=== PATIENT | female | born 2005 | race Caucasian/White ===

== ENCOUNTER 2025-04-11 12:02 | Emergency (ER) | payer BC, SELFPAY ==
[2025-04-11 12:11] VITALS: BP 127/77; PULSE 69; RESP 18; TEMP 36.9; O2SAT 98; BMI 23.1
--- NOTE | 2025-04-11 12:25 | CRLHL7_ITS ---
For Patients: As a result of the Century Cures Act, medical imaging exams and procedure reports are released immediately into your electronic medical record. You may view this report before your referring provider. If you have questions, please contact your health care provider. INDICATION: Playing rugby and hit another player. Unable to move arm. TECHNIQUE: Right shoulder three views. COMPARISON: None. FINDINGS: Anterior inferior dislocation of the humeral head relative to the glenoid. No visualized fracture. No other osseous abnormality. Soft tissues as imaged are unremarkable. IMPRESSION: Right anterior inferior shoulder dislocation. Dictated by Ezra Cornejo MD @ 04/11/2025 1:10:51 PM (Electronically Signed)
--- NOTE | 2025-04-11 12:26 | ED.GENADULT ---
HPI - General Adult General Chief complaint: Shoulder Injury/Pain Stated complaint: Right shoulder injury Time Seen by Provider: 04/11/25 12:16 History of Present Illness HPI narrative: This 19-year-old female comes in with an injury to her right shoulder. She was playing rugby and somehow got bumped and now has pain in her right shoulder region. She has associated decreased range of motion. She does not report any head injury or other injury. Related Data Home Medications ?Medication ?Instructions ?Recorded ?Confirmed control pills 04/11/25 Allergies Allergy/AdvReac Type Severity Reaction Status Date / Time No Known Drug Allergies Allergy Verified 04/11/25 12:10 Review of Systems Status of ROS: Reports: 10 or more systems reviewed and unremarkable except as noted in History and below Narrative: Constitutional: No fevers, no weight gain or loss. Eyes: No discharge. No vision changes. HENT: No congestion, no sore throat, no ear pain. Cardiovascular: No chest pain, no palpitations. Respiratory: No shortness of breath, no wheezes, no cough. Gastrointestinal: No abdominal pain, no vomiting, no diarrhea. Genitourinary: No dysuria, no hematuria. Musculoskeletal: Right shoulder injury as described above. Skin: No rashes, no pruritis. Neurological: No dizziness, weakness, sensory change, speech change. Endo/Heme/Allergies: No bruising or bleeding. No polydipsia. Pysch: no suicidality, no anxiety, no insomnia. All other systems reviewed and are negative. Exam Narrative: Exam Narrative: Constitutional: Well-developed, well-nourished, no acute distress. HEENT: Normocephalic, atraumatic. Neck: Normal range of motion. Nontender. Supple. Heart: Regular. No murmurs. Normal rate. Intact distal pulses. Lungs: Clear to auscultation. No chest discomfort. No wheezes, rhonchi, or rales. Abdomen: Normal bowel sounds. Nontender. No rebound tenderness. Genitalia: Deferred. Back: No midline tenderness. Normal range of motion. Extremities: Diffuse pain in the right shoulder. Range of motion is significantly decreased because of pain. No point tenderness when palpating along the clavicle and humerus. Skin: Intact. No rash. Warm. No erythema or pallor. Neurologic: No altered sensation. No weakness. Alert and oriented. Psychiatric: No suicidality. No anxiety or depression. No insomnia. Nursing notes and vitals signs are reviewed. Const: Vital Signs, click to edit/add: Vital Signs - 24 hr 04/11/25 12:11 Temperature 98.5 F Pulse Rate [Right Pulse Oximeter] 69 Respiratory Rate 18 Blood Pressure [Ri ght Upper Arm] 127/77 Pulse Oximetry 98 Oxygen Delivery Me thod Room Air Course Vital Signs Vital signs: Initial Vital Signs Temperature 98.5 F 04/11/25 12:11 Temperature Source Temporal Artery Scan 04/11/25 12:11 Pulse Rate 69 04/11/25 12:11 Respiratory Rate 18 04/11/25 12:11 Blood Pressure 127/77 04/11/25 12:11 Blood Pressure Mean 93 04/11/25 12:11 Blood Pressure Position Sitting 04/11/25 12:11 Pulse Oximetry 98 04/11/25 12:11 Oxygen Delivery Method Room Air 04/11/25 12:11 Vital Signs Temperature 98.5 F 04/11/25 12:11 Pulse Rate 69 04/11/25 12:11 Respiratory Rate 18 04/11/25 12:11 Blood Pressure 127/77 04/11/25 12:11 Pulse Oximetry 98 04/11/25 12:11 Oxygen Delivery Method Room Air 04/11/25 12:11 Temperature 98.5 F 04/11/25 12:11 Pulse Rate 69 04/11/25 12:11 Respiratory Rate 18 04/11/25 12:11 Blood Pressure 127/77 04/11/25 12:11 Pulse Oximetry 98 04/11/25 12:11 Oxygen Delivery Method Room Air 04/11/25 12:11 Medical Decision Making MDM Narrative Medical decision making narrative: This 19-year-old female comes in with an injury to her right shoulder. She does have some anterior fullness on exam that is suspicious for dislocation. She did receive an injection into the right glenohumeral joint space with 5 mL of bupivacaine 0.25%. This brought some relief to her symptoms. I was able to manipulate her shoulder back into proper position without any further sedation or and anesthesia. She received a sling and instructions were given regarding resuming activity. She also received a [employer] prescription for Toradol. Imaging Data XR R Shoulder: Radiologist's impression: Anterior inferior dislocation of the humeral head relative to the glenoid. No visualized fracture. No other osseous abnormality. Soft tissues as imaged are unremarkable. Discharge Plan Discharge Clinical Impression: Anterior shoulder dislocation Patient Disposition: Home, Self-Care Condition: Improved Additional Instructions: Wear sling and increase activity as tolerated. Use Toradol also as needed and directed for pain relief. Follow up with MD return if symptoms are persistent or worsening. Prescriptions: No Action control pills Follow Up/Referrals: Provider,Not a Local [Primary Care Provider, Family Practice] Stand Alone Forms: Ask Ziggy Info Instructions
--- OUTSIDE RECORDS SUMMARY | 2025-04-11 12:43 | XMS_ITS | Clinical Summary ---
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 Name Role Phone Unavailable Primary Care Provider Unavailabl e Source Comments NOTE: The information displayed by Care Everywhere is extracted from the complete medical record and may not identify all current or past patient conditions.[facility] Medications No known medications Immunizations Immunization Administration Dates Next Due *STANDARD DOSE SYRINGE* (FluLAVAL,FluZONE,FluARIX or AFLURIA) (6+ mos) QUAD 05/06/2019,04/30/2018 DTaP (Diphtheria, Tetanus, a cellular Pertussis) 03/20/2005,01/18/2004,2003,10/12 HPV, 9-Valent (GARDASIL 9, H uman Papillomavirus) 01/23/2017,03/03/2016 HepA (Hepatitis A) 03/03/2016,02/03/2015 HepA, unspecified formulation 03/03/2016, 015 HepB (Hepatitis B) 12/03/2008,09/11/2008, 008 HepB, unspecified formulation 12/03/2008, 009,06/24/2008 Hib (ACTHIB/HIBERIX,PRP-T) 03/02/2016,,01/18/2004,11/22,2003 Hib, unspecified formulation (Haemophilus Influenza Type B) 09/12/2004,01/18/2004,2003,10/12 IPV (Polio) 03/02/2016, 8,03/20/2005,04/11,03/14/2004 MMR (Measles, Mumps, Rubella) 09/11/2008, 006 Meningococcal Conjugate Vacc ine (MENVEO) 02/03/2015 Meningococcal, unspecified formulation 5 PCV7 (Pneumococcal Conjugate Vaccine 7 valent) 03/02/2016,09/12/2004,2003,10/12 Tdap (Tetanus, Diphtheria, a cellular Pertussis) 02/03/2015 Varicella 03/04/2009,06/24/2008,06/24/2006 Social History Tobacco Use Types Packs/Day Years Used Date Smoking Tobacco: Never Smokeless Tobacco: Never Comments Unknown Sex and Gender Information Value Date Recorded Sex Assigned at Not on file Legal Sex Female 8:39 AM PST Gender Identity Not on file Sexual Orientation Not on file Last Filed Vital Signs Vital Sign Reading Time Taken Comments Blood Pressure 90/62 01/24/2019 1:07 PM PDT Pulse 64 01/24/2019 1:07 PM PDT Temperature 36.8 C (98.2 F) 01/24/2019 1:07 PM PDT Respiratory Rate - - Oxygen Saturation 99% 01/24/2019 1:07 PM PDT Inhaled Oxygen Concentration - - Weight 64.6 kg (142 lb 6.4 oz) 01/24/2019 1:07 P M PDT Height 165.1 cm (5' 5) 01/24/2019 1:07 PM PDT Body Mass Index 23.7 01/24/2019 1:07 PM PDT Plan of Treatment Health Maintenance Due Date Last Done Comments Adult HIV Screen (1-time) 2018 Hep C Screening (1-time) 2021 Cervical Cancer Screening: Pap 2024 Vaccine: [id number] (6 - T d or Tdap) 02/03/2025 02/03/2015, 03/20/2005, 01/18/2004, Additional history exists FLU VACCINE (#1) 03/09/2025 05/06/2019, 04/30/2018 Vaccine: COVID-19 ( season) 2025 Vaccine: HPV Completed 01/23/2017, 03/03/2016 [place] Directives For more information, please contact: [phone] Documents on File Type Date Recorded Patient Brick Pointer Expl anation Durable Power of It 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
--- OUTSIDE RECORDS SUMMARY | 2025-04-11 12:43 | XMS_ITS | Clinical Summary ---
Author Organization [facility] Address [address] [place], [place] [address] [address] Care Team Providers Care [employer] Business Manager Name Role Phone Selected, No Pcp Primary Care Provider Unavailab le Allergies No known active allergies Medications No known medications Active Problems No known active problems Social History Tobacco Use Types Packs/Day Years Used Date Smoking Tobacco: Never Smokeless Tobacco: Never Alcohol Use Standard Drinks/Week Comments Never 0 (1 standard drink = 0.6 oz pur e alcohol) Comments No Sex and Gender Information Value Date Recorded Sex Assigned at Female 07/03/2021 6:14 PM PST Legal Sex Female 5:33 PM PST Gender Identity Female 07/03/2021 6:14 PM PST Sexual Orientation Straight 07/03/2021 6: 14 PM PST Last Filed Vital Signs Vital Sign Reading Time Taken Comments Blood Pressure 122/59 07/03/2021 6:15 PM PST Pulse 62 07/03/2021 6:15 PM PST Temperature 36.3 C (97.3 F) 07/03/2021 6:15 PM PST Respiratory Rate 14 07/03/2021 6:15 PM PST Oxygen Saturation 98% 07/03/2021 6:15 PM PST Inhaled Oxygen Concentration - - Weight 68 kg (150 lb) 07/03/2021 6:15 PM PST Height 165.1 cm (5' 5) 07/03/2021 6:15 PM PST Body Mass Index 24.96 07/03/2021 6:15 PM PST Plan of Treatment Not on file Insurance [facility]SR [facility] MEDICAL Care Teams [employer] Business Manager Relationship Specialty Start Date End Date Selected, No Pcp PCP - General PCP 07/03/21
[2025-04-11] MEDS: BUPIVACAINE 0.25% 30 ML INJECTION (13:20)
== END 2025-04-11 13:30 | disposition home or self-care (01) ==
PROVIDERS: Emergency Provider Emergency Medicine Emergency Medical Services
DX: S43.004A Unspecified dislocation of right shoulder joint, initial encounter (principal); W50.0XXA Accidental hit or strike by another person, initial encounter; Y93.63 Activity, rugby
CPT/HCPCS: 23650; 73030; 99284; J0665